=== PATIENT | male | born 2000 | race Two or more races ===

== ENCOUNTER 2022-12-06 00:52 | Emergency (ER) | payer OTHER ==
[~2022-12-06] VITALS: Ht 170.2 cm; Wt 53.5 kg
[2022-12-06] MEDS ORDERED: NORFLEX100MG PO (02:16)
[2022-12-06] MEDS ORDERED: KETO10TA2 PO (02:16)
== END 2022-12-06 03:01 ==
LOC: EMR PED 00:52
DX: M62.838 Other muscle spasm (principal)